=== PATIENT | female | born 1970 | race Two or more races ===

== ENCOUNTER 2024-12-07 21:08 | Emergency (ER) | payer BC, OTHER ==
[~2024-12-07] VITALS: Ht 170.2 cm; Wt 104.5 kg
[2024-12-07] MEDS: KETOROLAC TROMETH 60MG/2ML VIAL IM ONE (00:28)
[~2024-12-07 21:08] MED LIST: KETOROLAC TROMETH 60MG/2ML VIAL IM ONE
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
[2024-12-08] MEDS ORDERED: METH4PAK PO (00:48)
[2024-12-08] MEDS ORDERED: TIZA-142 PO (00:48)
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
[2024-12-08 01:45] VITALS: BP 136/67; PULSE 100; RESP 18; TEMP 97.9; O2SAT 97
== END 2024-12-08 01:48 | disposition home or self-care (01) ==
LOC: ER 21:18
DX: S46.011A Strain of muscle(s) and tendon(s) of the rotator cuff of right shoulder, initial encounter (principal); S46.012A Strain of muscle(s) and tendon(s) of the rotator cuff of left shoulder, initial encounter; S13.4XXA Sprain of ligaments of cervical spine, initial encounter; V43.52XA Car driver injured in collision with other type car in traffic accident, initial encounter; Y93.89 Activity, other specified; Y92.410 Unspecified street and highway as the place of occurrence of the external cause; Y99.8 Other external cause status
CPT/HCPCS: 72040; 96372; 99283; J1885

== ENCOUNTER 2025-06-10 09:50 | Emergency (ER) | payer BC ==
[~2025-06-10] VITALS: Ht 170.2 cm; Wt 102.1 kg
[2025-06-10 10:30] VITALS: BP 118/51; PULSE 59; RESP 18; TEMP 98.3; O2SAT 98
--- NOTE | 2025-06-10 11:02 | ED.PDOC ---
Homero. trauma (HPI) HPI Comments This is a 54 year old female presenting to the ED with chief complaint of head injury. Patient reports that she had been ice skating yesterday and fell backwards, hitting the back of her head. Patient relays that since then she has been experiencing a headache with associated jaw pain and blurred vision, being unable to focus. Patient states she was referred to the ED by [facility]. Patient denies any numbness, weakness, tingling, vision loss, LOC, or N/V. Chief Complaint: Fall Injury Time Seen by MD: 11:02 Reviewed notes: Nurses Notes, Medications, Allergies Allergies: Coded Allergies: No Known Drug Allergy (Verified Allergy, Unknown, 12/07/24) Information Source: Patient Mode of Arrival: Ambulatory Severity: Moderate Timing: Hours Duration: Since onset Location: Head Mechanism: Fall Past Medical History PAST MEDICAL HISTORY: Denies Surgical History: Denies all surgeries SCHOOL BUS OPERATOR History: No Pertinent SCHOOL BUS OPERATOR History Family History Family History: Reviewed,noncontributory to illness Social History Smoker: Non-Smoker Alcohol: Denies ETOH Use Drugs: Denies Drug Use Lives In: Home Constitutional: denies: chills, diaphoresis, fatigue, fever, malaise, sweats, weakness, others EENTM: reports: blurred vision, others (Jaw pain); denies: double vision, ear bleeding, ear discharge, ear drainage, ear pain, ear ringing, eye pain, eye redness, hearing loss, mouth pain, mouth swelling, nasal discharge, nose bleeding, nose congestion, nose pain, photophobia, tearing, throat pain, throat swelling, voice changes Respiratory: denies: cough, hemoptysis, orthopnea, SOB at rest, shortness of breath, SOB with excertion, stridor, wheezing, others Cardiovascular: denies: chest pain, dizzy spells, diaphoresis, Dyspnea on exertion, edema, irregular heart beat, left arm pain, lightheadedness, palpitations, PND, syncope, others Gastrointestinal: denies: abdomen distended, abdominal pain, blood streaked bowels, constipated, diarrhea, dysphagia, difficulty swallowing, hematemesis, melena, nausea, poor appetite, poor fluid intake, rectal bleeding, rectal pain, vomiting, others Genitourinary: denies: abnormal vagina bleeding, burning, dyspareunia, dysuria, flank pain, frequency, hematuria, incontinence, pain, , vagina discharge, urgency, others Neurological: reports: headache; denies: dizziness, fainting, left sided numbness, left sided weakness, numbness, paresthesia, pre-existing deficit, right sided numbness, right sided weakness, seizure, speech problems, tingling, tremors, weakness, others Musculoskeletal: denies: back pain, gout, joint pain, joint swelling, muscle pain, muscle stiffness, neck pain, others Integumetry: denies: bruises, change in color, change in hair/nails, dryness, laceration, lesions, lumps, rash, wounds, others Allergic/Immunocompromised: denies: Difficulty Healing, Frequent Infections, Hives, Itching, others Hematologic/Lymphatic: denies: anemia, blood clots, easy bleeding, easy bruising, swollen glands, others Endocrine: denies: excessive hunger, excessive sweating, excessive thirst, excessive urination, flushing, intolerance to cold, intolerance to heat, un explained weight gain, unexplained weight loss, others Psychiatric: denies: anxiety, bipolar disorder, depression, hopeless, panic disorder, schizophrenia, sleepless, suicidal, others All Other Systems: Reviewed and Negative Physical Exam General Appearance: No Apparent Distress, Normal HEENT: Normal ENT Inspection, Pharynx Normal, TMs Normal Neck: Full Range of Motion, Non-Tender, Normal, Normal Inspection Respiratory: Chest Non-Tender, Lungs Clear, No Accessory Muscle Use, No Respiratory Distress, Normal Breath Sounds Cardiovascular: No Edema, No JVD, No Murmur, No Gallop, Normal Peripheral Pu lses, Regular Rate/Rhythm Breast Exam: Deferred Gastrointestinal: No Organomegaly, Non Tender, No Pulsatile Mass, Normal Bowel Sounds, Soft Genitalia: Deferred Pelvic: Deferred Rectal: Deferred Extremities: No calf tenderness, Normal capillary refill, Normal inspection, Normal range of motion, Non-tender, No pedal edema Musculoskeletal : Apperance: Normal Neurologic: Alert, school bus operator II-XII nml as Tested, No Motor Deficits, Normal Affect, Normal Mood, No Sensory Deficits Cerebellar Function: Normal Reflexes: Normal Skin: Dry, Normal Color, Warm Lymphatic: No Adenopathy Was a procedure done? Was a procedure done?: No Differential Diagnosis Multiple Trauma: Closed Head Injury, Fractures, Contusion, Hematoma X-Ray, Labs, Meds, VS Vital Signs Date Time Temp Pulse Resp B/P (MAP) Pulse Ox O2 Delivery O2 Flow Rate FiO2 06/10/25 10:30 98.3 59 18 118/51 (73) 98 98.3 06/10/25 09:52 97.7 65 18 125/61 98 97.7 Lab Test 06/10/25 10:02 Range/Units POC Glucose 93 70-106 mg/dl [place] [address] Ph: [phone] DIAGNOSTIC IMAGING Diagnostic Imaging Report : [id number] Signed PATIENT: KATIE REYNOLDS ACCT: [id number] UNIT: [id number] : 1970 LOC: ER ROOM / BED: / AGE / SEX: 54 / F ADM STATUS: REG ER SERVICE 1019 ORDERING PHYSICIAN: JENNA SCOTT MD PROCEDURE(s): HWOCT - HEAD WITHOUT CONTRAST REASON: fall ORDER NUMBER(s): [id number], ACCESSION NUMBER(s): [id number] CLINICAL INFORMATION: Fall injury. TECHNIQUE: Axial imaging was obtained through the brain without contrast. Coronal and sagittal reformatted images were obtained, reviewed, and stored. Images were reviewed in brain and bone windows. All CT scans at this medical facility are performed using dose modulation techniques as appropriate to a performed exam including the following: Automated exposure control was utilized; adjustment of the MA and/or KV according to patient size; and use of iterative reconstruction technique. CTDIvol = 55.25 mGy DLP = 1087.38 mGy-cm COMPARISON: None FINDINGS: There is no acute intracranial hemorrhage. No mass effect or midline shift. The ventricles and sulci are within normal limits in size for age. Basal cisterns are patent. The calvarium is unremarkable. Paranasal sinuses and mastoid air cells are clear. Posterior scalp hematoma measures up to 1.5 cm in greatest dimension. IMPRESSION: 1. No CT evidence of acute intracranial abnormality. 2. Small posterior scalp hematoma. ATED BY: RICO CRUZ DO DICTATED DATE/TIME: 06/10/25 1105 SIGNED BY: RICO CRUZ DO SIGNED DATE/TIME: 06/10/25 1105 CC: Images Reviewed?: Images reviewed and evaluated by me Time of 1ST Reevaluation: 12:02 Reevaluation 1ST: Unchanged Patient Education/Counseling: Diagnosis, Treatment Family Education/Counseling: No Family Present Departure 1 Departure Time of Disposition: 12:07 (Patient's head CT is benign. Patient likely with a concussion) Impression: Primary Impression: Concussion Additional Impression: Fall Disposition: HOME / SELF CARE / HOMELESS Condition: Stable Referrals: MARA JORGENSEN MD Additional Instructions: Your head CT was negative. You likely have a concussion. You may be more tired or irritable than normal. You were referred to neurology. Please call for an appointment. For pain you can take the followinam: Ibuprofen 400mg with food Noon: Acetaminophen 1000mg 4pm: Ibuprofen 400mg with food 8pm: Acetaminophen 1000mg You should follow up with your regular doctor within one week to ensure you are doing better. If your symptoms worsen or you have any other concerns then please return to the ER. Discharged With: Self Critical Care Note Critical Care Time?: No Stability Stability form required: No Heart Score Heart Score: Heart Score Response (Comments) Value History N/A 0 EKG N/A 0 Age N/A 0 Risk Factors N/A 0 Troponin N/A 0 Total 0 I personally scribed for JENNA SCOTT MD ([email or web address]) on 06/10/25 at 11:02. Electronically submitted by Jorge Goyal ([email or web address]). I personally scribed for JENNA SCOTT MD ([email or web address]) on 06/10/25 at 11:18. Electronically submitted by Jorge Goyal ([email or web address]). JENNA SCOTT MD Jun 10, 2025 11:02
--- NOTE | 2025-06-10 11:08 | DVH ---
CLINICAL INFORMATION: Fall injury. TECHNIQUE: Axial imaging was obtained through the brain without contrast. Coronal and sagittal reformatted images were obtained, reviewed, and stored. Images were reviewed in brain and bone windows. All CT scans at this medical facility are performed using dose modulation techniques as appropriate to a performed exam including the following: Automated exposure control was utilized; adjustment of the MA and/or KV according to patient size; and use of iterative reconstruction technique. CTDIvol = 55.25 mGy DLP = 1087.38 mGy-cm COMPARISON: None FINDINGS: There is no acute intracranial hemorrhage. No mass effect or midline shift. The ventricles and sulci are within normal limits in size for age. Basal cisterns are patent. The calvarium is unremarkable. Paranasal sinuses and mastoid air cells are clear. Posterior scalp hematoma measures up to 1.5 cm in greatest dimension. IMPRESSION: 1. No CT evidence of acute intracranial abnormality. 2. Small posterior scalp hematoma.
== END 2025-06-10 12:23 | disposition home or self-care (01) ==
LOC: ER 09:50
DX: S06.0XAA Concussion with loss of consciousness status unknown, initial encounter (principal); Z79.899 Other long term (current) drug therapy; W19.XXXA Unspecified fall, initial encounter; Y93.89 Activity, other specified; Y92.89 Other specified places as the place of occurrence of the external cause; Y99.8 Other external cause status
CPT/HCPCS: 70450; 82947; 82962